=== PATIENT | male | born 1995 | race Caucasian/White ===

== ENCOUNTER → 2021-07-23 02:15 | Outpatient (CLI) | payer OTHER, SELFPAY ==
--- NOTE | 2021-07-23 10:00 | DI.RAD_ITS ---
Exam(s) XR CHEST 2V PA LATERAL EXAM: XR CHEST 2V PA LATERAL CLINICAL HISTORY: ASTHMA, J45.998; ABNL ELECTROCARDIOGRAM, R94.31, VES#[id number] TECHNIQUE: 2D digital imaging was performed of the chest. Two images were obtained. PA and lateral views were obtained. COMPARISON: No exams were available for comparison FINDINGS: MEDIASTINUM: Normal. HEART: Normal. PULMONARY VASCULATURE: Normal. LUNGS: Clear. PLEURAL SPACE: No pleural effusion or pneumothorax. BONE:Within normal limits for the patient's age. OTHER FINDINGS:Normal. IMPRESSION: No acute pulmonary findings. DATA REPOSITORY: RADIATION DOSE DELIVERED:
--- NOTE | 2021-07-23 10:30 | DI.US_ITS ---
APPROVED REPORT EXAM: Comprehensive 2D, Doppler, and color-flow Echocardiogram Patient Location: Out-Patient [employer] Adjuster: Caroline Ross RDCS (AE) Indications: Abnormal EKG, Asthma Other Information Study Quality: Good Conclusion Normal left ventricular wall thickness and chamber size. Estimated ejection fraction is 60%. Wall m otion is normal Normal right ventricular size and systolic function Both atria are normal in size There is no structural or hemodynamically significant valvular disease Wall motion Left Ventricle The left ventricle is normal size. The left ventricular systolic function is normal. The left ventric ular ejection fraction is within the normal range. There is normal left ventricular wall thickness. T here is normal LV segmental wall motion. There is no ventricular septal defect visualized. LVEF is 60 %. Right Ventricle The right ventricle is normal size. The right ventricular systolic function is normal. The RVSP is 15 .9mmHg. Atria The left atrium size is normal. The right atrium size is normal. The interatrial septum is intact wit h no evidence for an atrial septal defect. Aortic Valve The aortic valve is normal in structure. There is no aortic valvular stenosis. No aortic regurgitatio n is present. Mitral Valve The mitral valve is normal in structure. No evidence of mitral valve stenosis. Trace mitral regurgita tion. Tricuspid Valve The tricuspid valve is normal in structure. There is no tricuspid valve stenosis. Trace tricuspid reg urgitation. Pulmonic Valve The pulmonary valve is normal in structure. There is no pulmonic valvular stenosis. There is no pulmo francois valvular regurgitation. Great Vessels The aortic root is normal in size. The ascending aorta is normal in size. Aortic arch is normal in ca liber. IVC is normal in size and collapses >50% with inspiration. Pericardium There is no pericardial effusion. 2D Dimensions IVSD d PLAX 0.95 cm M: 0.6-1.2 LV Vol A2C d MOD 98.2 mL LVPW d PLAX 0.95 cm M: 0.6 - 1.2 LV Vol A4C d MOD 119.7 mL LVID d PLAX 5.07 cm M: 4.2 - 5.8 LA vol/ BSA A2C s A-L 19.6 mL/m2 LVDs 3.30 cm M: 2.5 - 4.0 LA vol/ BSA A4C s A-L 12.8 mL/m2 Ao Root d 2.74 cm M: 3.1 - 3.7 LA Vol/ BSA Biplane s A-L 16.0 mL/m2 RA Area A4C 11.88 cm2 LA Area A4C s MOD 12.14 cm2 RA Vol/ BSA A4C s A-L 12.0 mL/m2 LA Area A2C s MOD 15.19 cm2 Ao Asc Diam d 3.01 cm M: 2.6 - 3.4 LV EF A4C MOD 60.5 % LV EF Teichholz 63.6 % LV EF A2C MOD 59.6 % LVEF (Encinas's) 59.30 % M: 52 - 72 LV EF Biplane MOD 59.3 % LV Volume 78.80 mL M: 62 - 150 SV 64.18 mL LV Volume Index 35.98 mL/m2 M: 34 - 74 SV Index 29.28 mL/m2 LV Vol Biplane MOD 108.2 mL FS 34.70 % M-Mode TAPSE 2.07 cm (M/F) >1.7 LV Diastology MV E' medial 0.106 (>0.07 m/s) E/A Ratio 1.5 LV E/e MED 7.25 (<14) MV E Vmax 0.77 (0.4-1.3 m/s) MV E' lateral 0.128 (>0.1 m/s) MV A Vmax 0.50 (0.4-1.3 m/s) LV E/e LAT 6.00 (<14) MV E/A Ratio 1.49 MV E/E' medial 7.26 MV E/E' lateral 6.01 Aortic Valve LVOT Area 2.97 cm2 AoV Area Vmax 2.61 cm2 LVOT Vmax 1.10 m/s AoV Area/ BSA (Vmax) 1.19 cm2/m2 LVOT Mean Darion. 0.65 m/s ABHIJEET Mean Darion. 2.20 cm2 LVOT Peak Grad 4.9 mmHg ABHIJEET Mean Darion. Index 1.00 cm2/m2 LVOT Mean Grad 2.1 mmHg LVOT VTI 0.227 m LVOT Diam s 1.90 cm AoV Vmax 1.25 m/s Velocity Ratio 0.88 AoV Mean Darion. 0.88 m/s AoV Peak Grad 6.3 mmHg LVOT SV 67.36 mL AoV Mean Grad 3.5 mmHg AoV VTI 0.243 m AoV Area VTI 2.77 cm2 AoV Area/ BSA (VTI) 1.26 cm/m2 Mitral Valve MV DT 199 (160-240 msec) MV PHT 58 msec MV Area PHT 3.81 cm2 MV VTI 0.241 m MV Area VTI 2.80 (4.0-6.0 cm2) Pulmonary Valve PV Vmax 0.98 (0.5-1.5 m/s) RVOT Peak Gr. 2.72 mmHg PV Peak Grad 3.9 mmHg RVOT Mean Gr. 1.15 mmHg PV Mean Grad 2.1 mmHg RVOT VTI 0.147 m PV VTI 0.192 m RVOT Vmax 0.82 m/s Tricuspid Valve TR Peak Grad 12.9 mmHg TR Vmax 1.80 m/s RA Pressure 3.00 mmHg RVSP (TR) 15.9 mmHg
== END ==
PROVIDERS: Visit Provider Chiropractor
DX: R94.31 Abnormal electrocardiogram [ECG] [EKG] (principal); J45.909 Unspecified asthma, uncomplicated
CPT/HCPCS: 71046; 93306

== ENCOUNTER 2021-07-23 03:16 | Outpatient (CLI) | payer OTHER, SELFPAY ==
[2021-07-23 07:49] LABS: Bilirubin Negative (Negative); Blood Negative (Negative); Clarity Clear (Clear); Glucose Negative (Negative); Ketones Negative (Negative); Leukocyte Esterase Negative (Negative); Nitrite Negative (Negative); Specific Gravity >= 1.030 (1.005-1.025); Urobilinogen 0.2 EU/dL (Up TO 0.2)
[2021-07-23 09:02] LABS: ALT 43 U/L (16-63); AST 29 U/L (15-37); Albumin 4.4 g/dL (3.4-5.0); Alkaline Phosphatase 129 U/L (46-116); Anion Gap 7.1 mmol/L (3-11); BUN 16 mg/dL (7-18); Bilirubin, Total 0.4 mg/dL (0.2-1.0); CO2 29.9 mmol/L (21.0-32.0); CREATININE 1.4 mg/dL (0.70-1.30); Chloride 104 mmol/L (98-107); Glucose 111 mg/dL (74-106); Potassium 4.2 mmol/L (3.5-5.1); Sodium 141 mmol/L (136-145); Total Protein 7.9 g/dL (6.4-8.2)
== END 2021-07-23 03:17 | disposition home or self-care (01) ==
LOC: LBO 03:17
PROVIDERS: Visit Provider Chiropractor
DX: J45.998 Other asthma (principal); R82.998 Other abnormal findings in urine
CPT/HCPCS: 36415; 80053; 81003

== ENCOUNTER 2021-07-23 03:27 | Outpatient (CLI) | payer OTHER, SELFPAY ==
--- NOTE | 2021-07-23 09:30 | RT.EKG_ITS ---
APPROVED REPORT Exam: Resting ECG Reason for Exam: ABNORMAL ELECTROCARDIOGRAM Patient Location: O HR:63 bpm ECG Measurements Heart Rate 63 AXIS ID 154 P 49 QRSd 96 QRS 57 QT 403 T 30 QTc 413 Conclusion Sinus rhythm...normal P axis, V-rate 50- 99 Normal Electrocardiogram
== END 2021-07-23 03:28 | disposition home or self-care (01) ==
LOC: RT 03:29
PROVIDERS: Visit Provider Chiropractor
DX: R94.31 Abnormal electrocardiogram [ECG] [EKG] (principal)
CPT/HCPCS: 93005; 93010

== ENCOUNTER 2021-07-23 03:31 | Outpatient (CLI) | payer OTHER, SELFPAY ==
[2021-07-23] MEDS: Albuterol HFA 18 GM 200 PUFF INH IH (08:26)
[2021-07-23] MEDS: Inhaler, Assist Device 1 EACH MC (08:27)
--- NOTE | 2021-08-04 10:41 | W.PFT ---
Date of service: 07/23/21 Time of Service: 08:03 Pulmonary Function Test Result Requesting Provider Jerrell Ward Indications: JERONIMO Interpretation Spirometry: There is no airflow limitation. There is no significant bronchodilator response. Impression Normal spirometry. Clinical Correlation therefore is recommended.
== END 2021-07-23 03:32 | disposition home or self-care (01) ==
PROVIDERS: Visit Provider Chiropractor
DX: R06.09 Other forms of dyspnea (principal)
CPT/HCPCS: 94060

== ENCOUNTER 2022-08-11 10:15 | Outpatient (REF) | payer BC, SELFPAY ==
[2022-08-11 16:13] LABS: Abs Immature Grans 0.02 10^3/uL (0.0-0.06); Absolute Basophil Count 0.07 10^3/uL (0.0-0.2); Absolute Eosinophil Count 0.36 10^3/uL (0.0-0.7); Absolute Lymphocyte Count 3.24 10^3/uL (1.2-3.4); Absolute Monocyte Count 0.57 10^3/uL (0.1-0.8); Absolute Neutrophil Count 4.04 10^3/uL (1.2-6.7); Basophils % 0.8; Eosinophils % 4.3; HCT 47.4 % (40.0-50.0); HGB 16.2 g/dL (13.5-17.5); Immature Grans % 0.2; MCH 28.9 pg (27.0-33.0); MCHC 34.2 % (32.0-36.0); MCV 85 fL (80-95); MPV 9.5 fL (8.0-11.0); Monocytes % 6.9; Neutrophils % 48.8; Platelet Count 297 10^3/uL (130-400); RDW 12.5 % (11.8-14.1); RDW-SD 38.2 fL
[2022-08-11 16:29] LABS: Albumin 4.3 g/dL (3.4-5.0); Alkaline Phosphatase 128 U/L (46-116); Anion Gap 9.8 mmol/L (3-11); BUN 15 mg/dL (7-18); Bilirubin, Total 0.3 mg/dL (0.2-1.0); CO2 26.2 mmol/L (21.0-32.0); CREATININE 1.3 mg/dL (0.70-1.30); Calcium 8.8 mg/dL (8.5-10.1); Chloride 102 mmol/L (98-107); Cholesterol 227 mg/dL (<200); Estimated GFR 76.74 (mL/min/1.73m2); Glucose 110 mg/dL (74-106); HDL Cholesterol 30 mg/dL (40-60); Potassium 4.3 mmol/L (3.5-5.1); Sodium 138 mmol/L (136-145); TSH (W/Ref FT4) 2.53 uIU/mL (0.36-3.74); Total Protein 8.1 g/dL (6.4-8.2); Triglyceride 706 mg/dL (<150)
[2022-08-11 17:13] LABS: ALT 30 U/L (16-63); AST 25 U/L (15-37)
[2022-08-11 17:43] LABS: LDL CHOLESTEROL 92 mg/dL (<100)
== END 2022-08-11 10:16 | disposition home or self-care (01) ==
LOC: NCHCN 10:15
PROVIDERS: Visit Provider Nurse Practitioner Family
DX: G89.29 Other chronic pain (principal); M54.59 Other low back pain; M54.16 Radiculopathy, lumbar region; R19.7 Diarrhea, unspecified; Z71.89 Other specified counseling; R94.4 Abnormal results of kidney function studies
CPT/HCPCS: 80053; 80061; 83721; 84443; 85025